=== PATIENT | male | born 1990 | race Caucasian/White ===

== ENCOUNTER 2019-08-20 12:39 | Emergency (ER) | payer OTHER, SELFPAY ==
[~2019-08-20] VITALS: Ht 177.8 cm; Wt 81.6 kg
[2019-08-20 12:39] VITALS: BP 132/74; Ht 177.8 cm; Wt 81.6 kg
== END 2019-08-20 13:06 | disposition home or self-care (01) ==
LOC: ED 12:39
DX: U07.1 COVID-19 (principal)
CPT/HCPCS: U0003-CS